=== PATIENT | female | born 1985 | race Caucasian/White ===

== ENCOUNTER 2020-03-30 16:08 | Outpatient (REF) | payer OTHER, SELFPAY | END 2020-03-30 16:09 | disposition home or self-care (01) | LOC: HO.LAB 16:08 | PROVIDERS: PCP Internal Medicine; Visit Provider Internal Medicine | DX: Z20.828 Contact with and (suspected) exposure to other viral communicable diseases (principal) | CPT/HCPCS: 87635 ==

== ENCOUNTER 2020-07-30 08:41 | Outpatient (REF) | payer OTHER, SELFPAY ==
[2020-07-30 09:00] LABS: COVID-19 Test Negative (Negative)
== END 2020-07-30 08:42 | disposition home or self-care (01) ==
LOC: HO.EMPCOV 08:41
PROVIDERS: Visit Provider Internal Medicine
DX: Z20.822 Contact with and (suspected) exposure to COVID-19 (principal)
CPT/HCPCS: 36415; 87635; C9803

== ENCOUNTER 2020-09-18 09:35 | Outpatient (REF) | payer OTHER, SELFPAY ==
[2020-09-18 10:23] LABS: COVID-19 Test Negative (Negative); IDNOW Serial# 55D5AD1C
== END 2020-09-18 09:36 | disposition home or self-care (01) ==
LOC: HO.LAB 09:35
PROVIDERS: Visit Provider Internal Medicine
DX: Z20.822 Contact with and (suspected) exposure to COVID-19 (principal)
CPT/HCPCS: 36415; 87635; C9803

== ENCOUNTER 2020-10-30 08:56 | Outpatient (REF) | payer OTHER, SELFPAY ==
[2020-10-30 09:13] LABS: COVID-19 Test Negative (Negative)
== END 2020-10-30 08:57 | disposition home or self-care (01) ==
LOC: HO.EMPCOV 08:56
PROVIDERS: Visit Provider Internal Medicine
DX: Z20.822 Contact with and (suspected) exposure to COVID-19 (principal)
CPT/HCPCS: 36415; 87635; C9803